=== PATIENT | male | born 1970 | race Caucasian/White ===

== ENCOUNTER 2016-09-28 03:38 | Emergency (ER) | payer OTHER, SELFPAY ==
[2016-09-28] MEDS ORDERED: Acetaminophen/Codeine 30-300mg Tablet ONE (04:32)
[2016-09-28] MEDS ORDERED: Naproxen 500 MG TAB ONE (04:32)
--- NOTE | 2016-09-28 07:38 | RAD ---
RIGHT ELBOW 4 VIEWS: Date: 09/28/16 HISTORY: Pain. COMPARISON: None. FINDINGS: No fracture. No cortical irregularity. Alignment is anatomic and the joint spaces are preserved. No joint effusion. IMPRESSION: Unremarkable right elbow 4 views. POS: [facility]
--- NOTE | 2016-09-28 07:41 | RAD ---
RIGHT FOREARM 2 VIEWS: Date: 09/28/16 HISTORY: Trauma. Pain. COMPARISON: None. FINDINGS: No fracture. No cortical irregularity or periosteal reaction. IMPRESSION: No fracture. POS: [facility]
== END 2016-09-28 05:05 | disposition home or self-care (01) ==
LOC: MADERS 03:38
DX: S56.901A Unspecified injury of unspecified muscles, fascia and tendons at forearm level, right arm, initial encounter (principal); M62.830 Muscle spasm of back; E03.9 Hypothyroidism, unspecified; I10 Essential (primary) hypertension; J45.909 Unspecified asthma, uncomplicated; F31.9 Bipolar disorder, unspecified; F41.9 Anxiety disorder, unspecified; F17.210 Nicotine dependence, cigarettes, uncomplicated; X58.XXXA Exposure to other specified factors, initial encounter

== ENCOUNTER 2016-10-18 16:25 | Emergency (ER) | payer SELFPAY | END 2016-10-18 17:36 | disposition home or self-care (01) | LOC: MADERS 16:25 | DX: S56.511A Strain of other extensor muscle, fascia and tendon at forearm level, right arm, initial encounter (principal); E03.9 Hypothyroidism, unspecified; I10 Essential (primary) hypertension; J45.909 Unspecified asthma, uncomplicated; F31.9 Bipolar disorder, unspecified; F41.9 Anxiety disorder, unspecified; F17.210 Nicotine dependence, cigarettes, uncomplicated; Z79.899 Other long term (current) drug therapy; X58.XXXA Exposure to other specified factors, initial encounter | CPT/HCPCS: 99283 ==

== ENCOUNTER 2017-05-02 10:00 | Emergency (ER) | payer SELFPAY ==
[~2017-05-02 10:00] MED LIST: Sodium Chloride 0.9% 1,000 ML BAG ONE
[2017-05-02] MEDS ORDERED: HYDROcodone/Acetaminophen 10/325 mg Tablet ONE (10:33)
[2017-05-02] MEDS ORDERED: Naproxen 500 MG TAB ONE (10:33)
--- NOTE | 2017-05-02 10:43 | RAD ---
LEFT CLAVICLE 2 VIEWS: Date: 05/02/17 HISTORY: Fall with injury to clavicle. FINDINGS: No evidence of fracture. AC joint is normally aligned. IMPRESSION: No acute abnormality. POS: [facility]
--- NOTE | 2017-05-02 10:45 | RAD ---
LEFT SHOULDER 3 VIEWS: Date; 05/02/17 HISTORY: Fall. COMPARISON: None. FINDINGS: No dislocation. No fracture. Visualized left ribs are unremarkable. IMPRESSION: No fracture or dislocation. POS: [facility]
--- NOTE | 2017-05-02 10:57 | RAD ---
LEFT ELBOW 2 VIEWS: Date: 05/02/17 HISTORY: Fall with injury to left elbow. FINDINGS: There is a posterior dislocation of the left elbow with posterior dislocation of the olecranon. Ther e is evidence of a large hemarthrosis. There is a tiny fragment seen medially suggesting an avulsion fracture. The site of origin is not determined on this 2 view study. IMPRESSION: Evidence of fracture/dislocation left elbow. POS: [facility]
--- NOTE | 2017-05-02 10:58 | RAD ---
LEFT WRIST 3 VIEWS: Date: 05/02/17 HISTORY: Fall. Pain. COMPARISON: None. FINDINGS: No fracture. No cortical irregularity. No periosteal reaction. Intercarpal and radiocarpal joint spa ce preserved. IMPRESSION: Unremarkable left wrist 3 views. POS: [facility]
[2017-05-02] MEDS ORDERED: Fentanyl 100 MCG/2 ML VIAL ONE (11:28)
[2017-05-02] MEDS ORDERED: Midazolam HCl 10 mg/2 ml Vial ONE (11:28)
--- NOTE | 2017-05-02 12:22 | RAD ---
LEFT ELBOW POST REDUCTION 4 VIEWS: Date: 05/02/17 HISTORY: Post elbow dislocation and reduction. FINDINGS: There has been reduction of the elbow dislocation. The humerus and olecranon now exhibit normal alig nment. There is a tiny fragment which is seen medially. This fragment, however, is corticated and would ind icate an old avulsion fragment. No evidence of acute fracture identified. IMPRESSION: Elbow reduction. No evidence of acute fracture. POS: [facility]
== END 2017-05-02 12:50 | disposition home or self-care (01) ==
LOC: MADERS 10:00
DX: S53.105A Unspecified dislocation of left ulnohumeral joint, initial encounter (principal); E03.9 Hypothyroidism, unspecified; I10 Essential (primary) hypertension; J45.909 Unspecified asthma, uncomplicated; F41.9 Anxiety disorder, unspecified; F31.9 Bipolar disorder, unspecified; F17.210 Nicotine dependence, cigarettes, uncomplicated; F17.290 Nicotine dependence, other tobacco product, uncomplicated; Z79.899 Other long term (current) drug therapy; W10.9XXA Fall (on) (from) unspecified stairs and steps, initial encounter
CPT/HCPCS: 24600; 96361; 96374; 96375; 99152; 99153; J2250; J3010; J7050

== ENCOUNTER 2017-05-13 01:33 | Emergency (ER) | payer SELFPAY | END 2017-05-13 03:15 | disposition home or self-care (01) | LOC: MADERS 01:33 | DX: M25.522 Pain in left elbow (principal); E03.9 Hypothyroidism, unspecified; I10 Essential (primary) hypertension; J45.909 Unspecified asthma, uncomplicated; F41.9 Anxiety disorder, unspecified; F31.9 Bipolar disorder, unspecified; F17.210 Nicotine dependence, cigarettes, uncomplicated | CPT/HCPCS: 99283 ==

== ENCOUNTER 2017-12-30 18:59 | Emergency (ER) | payer OTHER ==
[2017-12-30] MEDS ORDERED: Ketorolac Tromethamine 30 MG/ML VIAL ONE (19:27)
[2017-12-30] MEDS ORDERED: Ondansetron ODT 4 MG TAB ONE (19:27)
== END 2017-12-30 20:12 | disposition home or self-care (01) ==
LOC: MADERS 18:59
DX: M17.12 Unilateral primary osteoarthritis, left knee (principal); I10 Essential (primary) hypertension; J45.909 Unspecified asthma, uncomplicated; F41.9 Anxiety disorder, unspecified; F31.9 Bipolar disorder, unspecified; F17.210 Nicotine dependence, cigarettes, uncomplicated; E03.9 Hypothyroidism, unspecified; Z79.899 Other long term (current) drug therapy
CPT/HCPCS: 96372; J1885; Q0162

== ENCOUNTER 2018-01-07 17:12 | Emergency (ER) | payer OTHER ==
[2018-01-07] MEDS ORDERED: Acetaminophen/Codeine 30-300mg Tablet ONE (18:20)
[2018-01-07] MEDS ORDERED: Naproxen 500 MG TAB ONE (18:20)
== END 2018-01-07 18:39 | disposition home or self-care (01) ==
LOC: MADERS 17:12
DX: M25.562 Pain in left knee (principal); E03.9 Hypothyroidism, unspecified; J45.909 Unspecified asthma, uncomplicated; F41.9 Anxiety disorder, unspecified; F31.9 Bipolar disorder, unspecified; F17.210 Nicotine dependence, cigarettes, uncomplicated; Z79.899 Other long term (current) drug therapy
CPT/HCPCS: 99283

== ENCOUNTER 2018-07-26 14:41 | Emergency (ER) | payer OTHER | END 2018-07-26 15:46 | disposition home or self-care (01) | LOC: MADERS 14:41 | DX: K29.70 Gastritis, unspecified, without bleeding (principal); T39.395A Adverse effect of other nonsteroidal anti-inflammatory drugs [NSAID], initial encounter; E03.9 Hypothyroidism, unspecified; F41.9 Anxiety disorder, unspecified; F31.9 Bipolar disorder, unspecified; F17.210 Nicotine dependence, cigarettes, uncomplicated; Z79.899 Other long term (current) drug therapy | CPT/HCPCS: 99283 ==

== ENCOUNTER 2019-06-18 18:07 | Emergency (ER) | payer OTHER ==
--- NOTE | 2019-06-18 19:06 | RAD ---
XR Forearm Lt 2 View STANDARD INDICATION: Forearm injury. COMPARISON: Prior exam dated September 28, 2016. FINDINGS: Bones: There is a healing ulnar and dorsally angulated transverse oriented fracture of the distal uln ar shaft. There is a new radiopaque foreign bodies seen within the volar ulnar soft tissues of the distal left forearm. 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 Soft tissues: Foreign body as above IMPRESSION: Healing angulated distal ulnar shaft fracture. Small radiopaque foreign body in the volar radial soft tissues of the distal left forearm
--- NOTE | 2019-06-18 19:08 | RAD ---
XR Elbow Lt 4 View STANDARD INDICATION: Elbow pain and injury FINDINGS: Bones: No acute fracture or subluxation is evident.. There is a stable small ossific density seen dis giovanni to the medial humeral epicondyle likely reflecting sequela remote trauma. 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 No joint capsular distention is evident . Radiocapitellar alignment appears within normal limits. Soft tissues: No radiopaque foreign body is evident. IMPRESSION: No acute osseous abnormality.
== END 2019-06-18 19:36 | disposition home or self-care (01) ==
LOC: MADERS 18:07
DX: S52.222A Displaced transverse fracture of shaft of left ulna, initial encounter for closed fracture (principal); I10 Essential (primary) hypertension; E03.9 Hypothyroidism, unspecified; J45.909 Unspecified asthma, uncomplicated; F31.9 Bipolar disorder, unspecified; F41.9 Anxiety disorder, unspecified; F17.210 Nicotine dependence, cigarettes, uncomplicated; Z79.899 Other long term (current) drug therapy; X50.0XXA Overexertion from strenuous movement or load, initial encounter
CPT/HCPCS: 29125

== ENCOUNTER 2020-01-16 15:43 | Emergency (ER) | payer BC | END 2020-01-16 17:00 | disposition home or self-care (01) | LOC: MADERS 15:43 | DX: H66.41 Suppurative otitis media, unspecified, right ear (principal); H72.91 Unspecified perforation of tympanic membrane, right ear; E03.9 Hypothyroidism, unspecified; I10 Essential (primary) hypertension; J45.909 Unspecified asthma, uncomplicated; M19.90 Unspecified osteoarthritis, unspecified site; F41.9 Anxiety disorder, unspecified; F31.9 Bipolar disorder, unspecified; F17.210 Nicotine dependence, cigarettes, uncomplicated; Z79.1 Long term (current) use of non-steroidal anti-inflammatories (NSAID); Z79.899 Other long term (current) drug therapy | CPT/HCPCS: 99282 ==

== ENCOUNTER 2020-06-11 09:10 | Emergency (ER) | payer BC | END 2020-06-11 10:05 | disposition home or self-care (01) | LOC: MADERS 09:10 | DX: R53.83 Other fatigue (principal); F17.210 Nicotine dependence, cigarettes, uncomplicated; E03.9 Hypothyroidism, unspecified; I10 Essential (primary) hypertension; N40.0 Benign prostatic hyperplasia without lower urinary tract symptoms; J45.909 Unspecified asthma, uncomplicated; M19.90 Unspecified osteoarthritis, unspecified site; Z79.899 Other long term (current) drug therapy | CPT/HCPCS: 99283 ==

== ENCOUNTER 2021-05-16 16:38 | Emergency (ER) | payer BC, OTHER ==
[2021-05-16] MEDS ORDERED: Lidocaine 1% (PF) 30 ML VIAL ONE (17:35)
[2021-05-16] MEDS ORDERED: cefTRIAXone\\ROCEPHIN 1 GM VIAL ONE (17:35)
[2021-05-16] MEDS ORDERED: Ondansetron ODT 4 MG TAB ONE (17:35)
== END 2021-05-16 17:55 | disposition home or self-care (01) ==
LOC: MADERS 16:38
DX: A08.4 Viral intestinal infection, unspecified (principal); H66.91 Otitis media, unspecified, right ear; I10 Essential (primary) hypertension; E03.9 Hypothyroidism, unspecified; J45.909 Unspecified asthma, uncomplicated; F17.210 Nicotine dependence, cigarettes, uncomplicated; Z79.899 Other long term (current) drug therapy
CPT/HCPCS: 96372; 99283; J0696; J2001; Q0162